=== PATIENT | female | born 1970 | race Hispanic/Latino ===

== ENCOUNTER 2019-07-13 06:43 | Day surgery (SDC) | payer OTHER ==
[~2019-07-13 06:43] MED LIST: ANCEF/STERILE WATER 2 GM/20 ML 2 GM/20 ML SYRINGE IV NR; LACTATED RINGERS 1,000 ML IV SCH; NEURONTIN PO NR; TYLENOL PO NR; VERSED IV NR
[2019-07-13] MEDS ORDERED: ZOFRAN IV PRN (07:29)
[2019-07-13] MEDS ORDERED: SUBLIMAZE IV PRN (07:29)
--- NOTE | 2019-07-13 07:44 | Anesthesia Day of Surgery ---
Anesthesia Day of Surgery - Day of Surgery Patient Examined: Yes Patient H&P Reviewed: Yes Patient is NPO: Yes
--- NOTE | 2019-07-13 07:46 | Short Stay Summary ---
Short Stay Documentation Date of service: 07/13/19 - History H&P: obtained from office - Allergies and Medications Current Medications: Allergies No Known Allergies Allergy (Verified 07/09/19 11:01) Home Medications Medication Instructions Recorded Confirmed Last Taken Type Bisoprolol/Hctz [Ziac 2.5-6.25] 1 each PO DAILY 07/09/19 07/09/19 Unknown History Estradiol 0.5 mg PO QDAY 07/09/19 07/09/19 Unknown History Venlafaxine HCl [Venlafaxine HCl 150 mg PO QDAY 07/09/19 07/09/19 Unknown History ER] Active Medications Acetaminophen (Tylenol) 1,000 mg PO PREOP NR Stop: 07/13/19 23:59 Last Admin: 07/13/19 07:08 Dose: 1,000 mg Documented by: Celecoxib (Celebrex) 400 mg PO PREOP NR Stop: 07/13/19 23:59 Last Admin: 07/13/19 07:10 Dose: 400 mg Documented by: Fentanyl (Sublimaze) 50 mcg IV Q5MIN PRN PRN Reason: Pain , Severe (7-10) Stop: 07/13/19 20:00 Gabapentin (Neurontin) 1,200 mg PO PREOP NR Stop: 07/13/19 23:59 Last Admin: 07/13/19 07:10 Dose: 1,200 mg Documented by: Cefazolin Sodium (Ancef/Sterile Water 2 Gm/20 Ml) 2 gm in 20 mls @ 80 mls/hr IV PREOP NR; Protocol Stop: 07/13/19 23:59 Lactated Ringer's (Lactated Ringers) 1,000 mls @ 100 mls/hr IV DIRECT EFREM Last Admin: 07/13/19 07:11 Dose: 100 mls/hr Documented by: Midazolam HCl (Versed) 2 mg IV PREOP NR Stop: 07/13/19 23:59 Last Admin: 07/13/19 07:12 Dose: 2 mg Documented by: Ondansetron HCl (Zofran) 4 mg IV ONCE PRN PRN Reason: Nausea And Vomiting - Physical exam General appearance: no acute distress HEENT: Atraumatic Lungs: Normal air movement Gastrointestinal: normal Neurological: Normal speech - Brief post op/procedure progress note Date of procedure: 07/13/19 (Dictation:[id number]) Pre-op diagnosis: Symptomatic cholelithiasis Post-op diagnosis: same Procedure: robotic assisted lap dov IVF 700cc EBL <20cc Anesthesia: GETA Findings: elongated GB with adhesions and numerous stones Surgeon: JAQUI NAVA Title Abstractor: JESS BADILLO Estimated blood loss: minimal Pathology: list (gallbladder) Specimen disposition: to lab Condition: stable - Hospital course Hospital course: uneventful - Disposition Condition at discharge: Stable Disposition: DC-01 TO HOME OR SELFCARE Short Stay Discharge Plan Wound: open to air, keep clean and dry Additional Instructions: Post Operative Instructions Wound : keep clean and dry No driving until cleared by surgeon. May shower tomorrow. Pat dry the wound or wounds. After surgery, start with a light diet. Consider having a liquid diet first. If you do well, you can advance to a regular diet as you feel comfortable. Apply an ice pack to the wound or wounds for 10-20 minutes at a time. Do this at least 4-5 times a day. You can do it more if he would like. Alternate the use of ibuprofen and Tylenol for the first [address] Nava want you to take these on a scheduled basis. Take 600 mg of ibuprofen every 6 hours. Take 500 mg of Tylenol every 6 hours. You should alternate these 2 medicines. In other words, beginning with the ibuprofen. After 3 hours, take the Tylenol. Keep alternating the 2 drugs every 3 hours. Do this on a scheduled basis for the first 2 days. After that, you can take them as needed. It is very important that you use the prescription pain medicine only for very severe pain. Do not take the prescription medicine before you try using the ibuprofen and Tylenol. We will call you in a couple of days to see how youre doing. If you have any questions or concerns, always feel free to call the clinic at any time. Follow up with: CLOVER CONLEY MD [Primary Care Provider] - 7 Days JAQUI NAVA MD [Staff Physician] - 14 Days Forms: Outpatient Surgery DC Inst. Prescriptions: HYDROcodone/APAP 5-325 [[place] 5/325] 1 each PO Q6HR PRN #10 tablet PRN Reason: Pain , Severe (7-10)
--- NOTE | 2019-07-13 07:47 | Anesthesia Consultation ---
Anesthesia Consult and Med Hx Date of service: 07/13/19 - Airway Anesthetic Teeth Evaluation: Dentures, Edentulous ROM Head & Neck: Adequate Mental/Hyoid Distance: Adequate Mallampati Class: Class II Intubation Access Assessment: Good - Pre-Operative Health Status ASA Pre-Surgery Classification: ASA2 Proposed Anesthetic Plan: General - Pulmonary Hx Smoking: No Hx Sleep Apnea: No - Cardiovascular System Hx Hypertension: Yes (2017) - Central Nervous System Hx Back Pain: Yes Hx Psychiatric Problems: Yes (Anxiety) - Other Systems Hx Alcohol Use: No Hx Substance Use: No
[2019-07-13] MEDS ORDERED: XYLOCAINE 1% 20 mL ONE (07:56)
[2019-07-13] MEDS ORDERED: MARCAINE-EPI 0.5%-1:200,000 INFILTRATI ONE ×2 (07:56→09:12)
[2019-07-13] MEDS ORDERED: DILAUDID ONE (08:10)
[2019-07-13] MEDS ORDERED: DIPRIVAN 10 MG/ML IV ONE (08:10)
[2019-07-13] MEDS ORDERED: XYLOCAINE MPF 2% ONE (08:12)
[2019-07-13] MEDS ORDERED: XYLOCAINE 1% 20 mL INFILTRATI ONE (09:12)
[2019-07-13] MEDS ORDERED: NACL 0.9% IR ONE (09:13)
[2019-07-13] MEDS ORDERED: WATER FOR IRRIG STERILE IR ONE (09:13)
[2019-07-13] MEDS ORDERED: TORADOL ONE (10:02)
[2019-07-13] MEDS ORDERED: ZOFRAN ONE (10:05)
[2019-07-13] MEDS ORDERED: BLOXIVERZ ONE (10:05)
[2019-07-13] MEDS ORDERED: ROBINUL ONE (10:05)
--- NOTE | 2019-07-13 10:26 | Operative Report ---
PREOPERATIVE DIAGNOSES: 1. Symptomatic cholelithiasis. 2. Possible cholecystitis. POSTOPERATIVE DIAGNOSES: 1. Symptomatic cholelithiasis. 2. Chronic cholecystitis. PROCEDURE: Robotic-assisted laparoscopic cholecystectomy. ATTENDING PHYSICIAN: Dr. Cj MD [employer] CREW MEMBER: Dr. Pope. ANESTHESIA: General. ESTIMATED BLOOD LOSS: Minimal. FINDINGS: Elongated gallbladder with multiple stones adhesions noted near the neck of the gallbladder and between the gallbladder and the bed. No other abnormalities were identified. SPECIMENS: Gallbladder. DRAINS: None. DISPOSITION: Stable, transferred to Recovery Room. INDICATIONS: This is a 48-year-old female who has been having issues with symptomatic gallstones. The patient is assessed to be need for cholecystectomy. Procedure, risks, benefits were explained to the patient. Risks included but were not limited to infection, bleeding, pain, injury to surrounding structures, possible need for open surgery, possible need for further procedures in the future. The patient understood and consented. OPERATIVE NOTE: The patient was brought to the operating room and placed on the table in supine position. After adequate general anesthesia was established, the patient was prepped and draped in usual sterile fashion. Antibiotics have been administered prior to start of the case. SCDs were in place. After timeout, I began by placing a Veress needle in left upper quadrant. I was able to insufflate on the first attempt. This was replaced with a 5 mm port using Optiview technique for insertion. There was no injury to the underlying structures. Under direct vision, we placed a 12 mm port at the umbilicus. Two more 8 mm ports on the right side and then we replaced the 5 mm port with an 8 mm port under direct vision. The patient was then reversed Trendelenburg, rotated to the left. Robot was docked. I began by dissecting the adhesions away from the infundibulum and neck of the gallbladder. There were extensive adhesions in this area. I took extra time. The area between the gallbladder and the bed was also densely adhesed therefore extra time was required for the dissection; however, I was able to dissect out a critical view of cystic duct. The cystic artery we saved till last due to the adhesions and as a precaution, I did a top down approach in the middle of the case just to make absolutely sure there was no evidence of any duct in that area that may be obscured by adhesions. Once I was confident that things looked good, I then placed 2 clips distally, 1 proximally in relation to gallbladder on the cystic duct and divided it. I then as a precaution placed a clip inferior to the node of Calot and then divided that tissue. Finally, because of the adhesions, I wanted to make absolutely sure, so I did a little bit more dissection around the artery and then I clipped that distally and divided that. Some additional adhesions were then taken down between the gallbladder and the bed and once that was done, the gallbladder was freed and we left it on the side. We examined the bed. We had good hemostasis. There was no evidence of any bile leak. We then undocked the robot at this point converted back to laparoscopic. We cleaned up the area, did suction irrigation to make sure everything was completely clean as we did have a little bit of bile leakage from the gallbladder itself in the dissection with excellent hemostasis. The clips were all in place. There was no bile leak. Specimen was placed in EndoCatch bag. We removed the gauze that I have been inserted as well as the EndoCatch bag from the umbilical port site. We had to extend the fascial incision at the umbilical port site to get the gallbladder out. Once that was done, we used a Luis Carlos-Patel fascial closure device with 0 Vicryl to close that fascial defect. We had a good airtight closure. Additional local was injected, 4-0 Monocryl subcuticular stitches were then placed to close all the incisions. Skin was cleaned and dried. Dermabond was placed. I examined the gallbladder on the back table. We clearly had divided the cystic duct and cystic artery. There were no other ductal structures. There were numerous stones packed into the gallbladder. I was satisfied with this appearance that we do not have any injuries to the common duct. The patient tolerated the procedure well. All counts were correct at the end of the case. I spoke with the family at the end of the case. JOB# [id number] LIDIA/BUDDY
[2019-07-13 12:10] VITALS: BP 132/71
--- NOTE | 2019-07-13 13:14 | Post Anesthesia Evaluation ---
- Post Anesthesia Evaluation Patient Participated: Yes Airway Patent: Yes Stable Respiratory Function: Yes Nausea/Vomiting: No Temp > 96.8F: Yes Pain Manageable: Yes Adequeate Hydration: Yes Anesthesia Complications: No
== END 2019-07-13 12:20 | disposition home or self-care (01) ==
LOC: OR 06:43
PROVIDERS: ATTEND Surgery
DX: K80.10 Calculus of gallbladder with chronic cholecystitis without obstruction (principal); I10 Essential (primary) hypertension; F41.9 Anxiety disorder, unspecified; Z79.899 Other long term (current) drug therapy; Z90.710 Acquired absence of both cervix and uterus; Z90.721 Acquired absence of ovaries, unilateral; Z98.890 Other specified postprocedural states
CPT/HCPCS: 36415; 47562; 84132; 88304; J0690; J1170; J1885; J2250; J2405; J2704; J2710; J7120; S2900